=== PATIENT | female | born 1995 | race Caucasian/White ===

== ENCOUNTER 2020-01-28 05:30 | Inpatient (IN) | payer MEDICAID, SELFPAY ==
[2020-01-28] VITALS (11 sets, daily range): BP systolic 99–128; BP diastolic 58–78; PULSE 71–82; RESP 16–18; TEMP 36.4–36.9; O2SAT 98; BMI 29.6
[2020-01-28] MEDS: lactated ringers 1,000 ML 999 ML IV (06:06)
[2020-01-28] MEDS: ampicillin 2,000 MG in sodium chloride 0.9% (plus) 50 ML 100 MG IV (06:06)
[2020-01-28] MEDS: fentaNYL 50 mcg/mL INJ 2mL IV (06:11)
[2020-01-28 06:34] LABS: Basophils # 0.1 10^3/uL (0.0-0.1); Basophils % 0.3 %; Eosinophils # 0.1 10^3/uL (0.0-0.8); Eosinophils % 0.4 %; Hemoglobin 10.9 g/dL (11.5-15.3); Lymphocytes # 2.5 10^3/uL (0.8-4.8); Lymphocytes % 12.8 %; Mean Corpuscular HGB Conc 31.1 g/dL (30.0-36.0); Mean Corpuscular Hemoglobin 31.1 pg (28.0-34.0); Mean Platelet Volume 9.9 fL (7.4-10.4); Monocytes # 1.2 10^3/uL (0.2-0.9); Monocytes % 6.1 %; Neutrophils # 15.51 10^3/uL (1.8-7.7); Neutrophils % 79.3 %; Nucleated Red Blood Cells % 0 %; Platelet Count 217 10^3/cmm (130-400); Red Cell Distribution Width 13.8 % (12.1-15.1); White Blood Count 19.5 10^3/uL (4.0-10.0)
--- NOTE | 2020-01-28 07:49 | P.PCNOB_ITS ---
Delivery Note: Date of delivery: January 28, 2020 Pre-Delivery Course: The patient had routine care at [facility]. There were no complications during her . She was blood type a positive antibody negative, rubella immune, RPR nonreactive, HIV nonreactive, hep C nonreactive, hep B nonreactive, glucose screen 124, GC chlamydia negative, GBS unknown. Delivery: This is a 24-year-old G3, P1 at 37 weeks 2 days gestation with an ROSA M of 02/16/20 who presented to labor and delivery complaining of rupture of membranes. She had spontaneous rupture of membranes at approximately 0300 hrs. with clear fluid. She was grossly ruptured 4 cm 95% effaced and -2 station on presentation. She labored rather quickly and did not have time to receive an epidural by the time she requested it. She had a normal spontaneous vaginal delivery of a viable female direct OP position over an intact perineum. The infant was suctioned at delivery and placed on the mother's chest. weight 2895 g, Apgars 8 and 9. the cord was clamped and cut. Cord blood was obtained. The placenta was delivered grossly intact and normal to inspection though somewhat calcified for 37 weeks. There were no lacerations. Estimated blood loss 125 mL. Mother was doing well after delivery. The was somewhat lazy and had low normal O2 sats so was maintained on continuous pulse ox A&P Assessment and plan (1) Normal spontaneous vaginal delivery: Routine care Status: Acute Coding Level of Care Code Acute Product Management Manager for [facility] Fwd Diagnoses Normal spontaneous vaginal delivery O80
[2020-01-28 09:10] LABS: SARS Covid-2 Antigen Negative (Negative)
[2020-01-28] MEDS: ibuprofen 800 mg tablet PO ×3 (11:10→21:07)
[2020-01-28] MEDS: prenatal vitamin Capsule 1 CAP PO (11:10)
[2020-01-28] MEDS: docusate sodium 100 mg Capsule PO ×2 (11:10→18:14)
[2020-01-28 20:23] LABS: Hemoglobin 10.8 g/dL (11.5-15.3); Mean Corpuscular HGB Conc 30.9 g/dL (30.0-36.0); Mean Corpuscular Hemoglobin 30.9 pg (28.0-34.0); Mean Corpuscular Volume 100.3 fL (81-99); Mean Platelet Volume 10.3 fL (7.4-10.4); Platelet Count 245 10^3/cmm (130-400); Red Blood Count 3.49 10^6/uL (4.1-5.3); Red Cell Distribution Width 13.5 % (12.1-15.1); White Blood Count 19.5 10^3/uL (4.0-10.0)
[2020-01-29 01:15] VITALS: BP 104/64; PULSE 70; RESP 16; TEMP 36.4; O2SAT 97
[2020-01-29 03:15] VITALS: BP 95/54; PULSE 75; RESP 16; TEMP 36.4; O2SAT 97
[2020-01-29] MEDS: prenatal vitamin Capsule 1 CAP PO (09:26)
[2020-01-29] MEDS: ibuprofen 800 mg tablet PO (09:26)
[2020-01-29] MEDS: docusate sodium 100 mg Capsule PO (09:26)
[2020-01-29 10:16] VITALS: BP 115/68; PULSE 82; RESP 18; TEMP 36.4
[2020-01-29 15:40] VITALS: BP 127/80; PULSE 83; RESP 17; TEMP 36.7
[2020-01-29 18:32] LABS: Coronavirus Test Green County Not Detected
--- NOTE | 2020-02-11 17:17 | P.DS_ITS ---
Discharge Providers Date of Admission: 01/28/20 05:30 Date of Discharge: February 11, 2020 Attending Provider at Admission: Ninfa Fowler MD Attending Provider at Discharge: Ninfa Fowler MD Primary Care Provider: Francisco Bhat Diagnoses at Discharge Discharge Diagnosis (1) Normal spontaneous vaginal delivery: Status: Acute Reason for Visit Reason for Visit: rupture of membrane Hospital Course Hospital Course This is a 24 y/o G3 now P2 who presented to L&D with SROM at 37w2d gestation. She had a of a viable male . Mother and did well after delivery. On PPD #1 she was ambulating, tolerating a regular diet, had decreased vaginal bleeding and was comfortable with dicsharge home. Physical Exam HENMT: COMMON NORMALS: normocephalic HEAD & SCALP: normocephalic Eye: COMMON NORMALS: Equal, round and reactive pupils present and EOMs intact bilaterally PUPIL: Yes Equal, round and reactive pupils present Chest: COMMONS NORMALS: normal inspection of the chest Resp: COMMON NORMALS: normal respiratory effort and clear to auscultation bilaterally AUSCULTATION: clear to auscultation bilaterally Cardio: COMMON NORMALS: regular rate and regular rhythm RATE: regular rate RHYTHM: regular rhythm GI: COMMON NORMALS: Soft to palpation, non-tender and no masses PALPATION: Yes Soft to palpation Extremity: GENERAL: No calf tenderness and No edema Discharge Data Vitals: Last Vital Signs Temp 98.0 F 01/29/20 15:40 Pulse 83 01/29/20 15:40 Resp 17 01/29/20 15:40 BP 127/80 01/29/20 15:40 Pulse Ox 97 01/29/20 03:15 Discharge Plan Discharge Patient Disposition: Home Prescriptions: Continued prenat.vits,jose guadalupe,[id number] Tablet 1 tab PO DAILY RF: 0 Discharge Orders: Discharge Order (Routine); Ordered 01/29/20 Ordered By: Ninfa Fowler Referrals: Ninfa Fowler MD [Physician] - 02/26/20 10:15 am (* Your appointment is with Dr. Fowler on 02/25/2019 at 10:15 am. ) Discharge Diet: Usual diet Discharge Activity: Increase activity as tolerated Patient Instructions: Bleeding (DC), OB Discharge Report, OB Food/Drug Interaction Guide, OB Home Care, OB Proud Parent Packet, OB Vaginal Deliveries Activity Restrictions/Additional Instructions: May take over the counter Tylenol and Ibuprofen as needed to pain. Discharge Attestations Time Spent in Discharge Care*: less than 30 min Quality Metrics Clinical Quality Measures During this hospital stay, did patient experience: None Coding Level of Care Code Acute Industrial Equipment Mechanic for [facility] Fwd Diagnoses Normal spontaneous vaginal delivery O80
== END 2020-01-29 16:00 | disposition home or self-care (01) | DRG 807 ==
LOC: OPOB 01-29 10:59 → OBGYN 01-29 10:59
PROVIDERS: Admitting Provider Family Medicine; PCP Family Medicine; Visit Provider Family Medicine
DX: O42.02 Full-term premature rupture of membranes, onset of labor within 24 hours of rupture (principal); Z37.0 Single live birth; Z3A.37 37 weeks gestation of pregnancy; O62.3 Precipitate labor
CPT/HCPCS: 36415; 59025; 59409; 83986; 85025; 85027; 87426; 87635; 99211; J0290; J3010